=== PATIENT | female | born 1945 | race Caucasian/White ===

== ENCOUNTER 2019-03-14 05:30 | Day surgery (SDC) | payer MEDICARE ==
[~2019-03-14] VITALS: Ht 154.9 cm; Wt 75.7 kg
[~2019-03-14 05:30] MED LIST: ATOR20TA65 PO; CLON0.1T PO; CLOP75TA32 PO; DULO60CA64 PO; LEVE100S PO; LEVO50TA11 PO; LINA5TAB PO; MEMA7CAP2 PO; METO25TA6 PO; OLME20TA22 PO; OMEP40CA13 PO; PREG75CA75 PO; SUCR1TAB2 PO
[2019-03-14] MEDS ORDERED: SODIUM CHLORIDE 0.9% 1000ML 1,000 ML IV ONE (05:59)
[2019-03-14 06:16] VITALS: BP 144/95
[2019-03-14] MEDS ORDERED: PROPOFOL 10 MG/ML 20ML VIAL IV ONE (07:03)
[2019-03-14 07:27] VITALS: BP 108/56
[2019-03-14 07:31] VITALS: BP 119/60
[2019-03-14 07:36] VITALS: BP 109/66
[2019-03-14 07:42] VITALS: BP 129/72
== END 2019-03-14 07:55 | disposition home or self-care (01) ==
LOC: DAH 05:30 → ENDO 05:30
PROVIDERS: ATTEND Internal Medicine
DX: R14.0 Abdominal distension (gaseous) (principal); K63.89 Other specified diseases of intestine; K57.30 Diverticulosis of large intestine without perforation or abscess without bleeding; K64.1 Second degree hemorrhoids; I10 Essential (primary) hypertension; E03.9 Hypothyroidism, unspecified; I25.10 Atherosclerotic heart disease of native coronary artery without angina pectoris; Z88.2 Allergy status to sulfonamides; Z88.8 Allergy status to other drugs, medicaments and biological substances; Z88.1 Allergy status to other antibiotic agents; Z79.899 Other long term (current) drug therapy; Z86.010 Personal history of colon polyps; Z82.49 Family history of ischemic heart disease and other diseases of the circulatory system; Z82.3 Family history of stroke; Z98.890 Other specified postprocedural states
CPT/HCPCS: 45380; 82948 ×2; 88305; A4215; A4221; A4222; A4223; A4606; A4615; A4663; J2704; J7030